=== PATIENT | male | born 1945 | race Hispanic/Latino ===

== ENCOUNTER 2018-10-28 13:06 | Inpatient (IN) | payer OTHER | END 2018-11-02 19:00 | LOC: EDH 13:06 → 3BH 17:00 | DX: M86.9 Osteomyelitis, unspecified (principal); J18.9 Pneumonia, unspecified organism; I13.0 Hypertensive heart and chronic kidney disease with heart failure and stage 1 through stage 4 chronic kidney disease, or unspecified chronic kidney disease; N17.9 Acute kidney failure, unspecified; M86.672 Other chronic osteomyelitis, left ankle and foot; I50.9 Heart failure, unspecified; N18.9 Chronic kidney disease, unspecified; E87.5 Hyperkalemia; L97.529 Non-pressure chronic ulcer of other part of left foot with unspecified severity; E11.621 Type 2 diabetes mellitus with foot ulcer; E11.22 Type 2 diabetes mellitus with diabetic chronic kidney disease; E11.51 Type 2 diabetes mellitus with diabetic peripheral angiopathy without gangrene ==

== ENCOUNTER 2018-11-19 16:52 | Emergency (ER) | payer OTHER ==
[~2018-11-19 16:52] MED LIST: AMLO10TA7 PO; ATOR10 PO; CYAN100084 PO; FERR159T2 PO; FOLI1TAB15 PO; FURO20TA4 PO; GABA-529 PO; HYDR-4154 PO; INSLAN SQ; INSU100C6 SQ; LISI10TA7 PO; METO25TA6 PO; OMEP20CA10 PO
== END 2018-11-19 20:57 | disposition home or self-care (01) ==
LOC: EDH 16:52
DX: I12.0 Hypertensive chronic kidney disease with stage 5 chronic kidney disease or end stage renal disease (principal); E11.22 Type 2 diabetes mellitus with diabetic chronic kidney disease; N18.6 End stage renal disease; E87.70 Fluid overload, unspecified; I25.10 Atherosclerotic heart disease of native coronary artery without angina pectoris; E78.5 Hyperlipidemia, unspecified; Z95.1 Presence of aortocoronary bypass graft; Z79.4 Long term (current) use of insulin; Z99.2 Dependence on renal dialysis

== ENCOUNTER 2018-11-20 10:21 | Emergency (ER) | payer OTHER ==
[2018-11-20 10:45] LABS: BASOPHILS % (AUTO) 1.2 % (0.0-5.0); EOSINOPHILS % (AUTO) 3.6 % (0.0-8.0); HEMATOCRIT 22.6 % (42-54); LYMPHOCYTES % (AUTO) 9.3 % (21.0-51.0); MEAN CORPUSCULAR HEMOGLOBIN 28.7 pg (27.0-33.0); MEAN CORPUSCULAR HGB CONC 32.1 g/dL (32.0-36.0); MEAN CORPUSCULAR VOLUME 89.6 fL (79-99); MONOCYTES % (AUTO) 10.4 % (3.0-13.0); NEUTROPHILS % (AUTO) 75.5 % (40.0-77.0); PLATELET COUNT (AUTO) 50 K/uL (130-400); RED BLOOD CELL COUNT(AUTO) 2.52 MIL/uL (4.50-6.20); RED CELL DISTRIBUTION WIDTH 15.5 % (11.0-15.5); WHITE BLOOD COUNT (AUTO) 5.8 K/uL (4.8-10.8)
[2018-11-20 10:58] LABS: POTASSIUM 5.5 mmol/L (3.5-5.1)
[2018-11-20 10:59] LABS: CREATININE 12.3 mg/dL (0.5-1.5)
[2018-11-20 11:05] LABS: INR 1.01 (0.85-1.15); PARTIAL THROMBOPLASTIN TIME 29.1 SEC (26.3-35.5); PROTHROMBIN TIME 10.6 SEC (9.6-11.6)
[2018-11-20] MEDS ORDERED: LIDOCAINE HCL 1% 20 ML VIAL ONE (11:20)
[2018-11-20] MEDS ORDERED: SODIUM BICARB 50MEQ 50ML VIAL ONE (11:20)
== END 2018-11-20 15:04 | disposition home or self-care (01) ==
LOC: EDH 10:21
DX: I12.0 Hypertensive chronic kidney disease with stage 5 chronic kidney disease or end stage renal disease (principal); E11.22 Type 2 diabetes mellitus with diabetic chronic kidney disease; N18.6 End stage renal disease; E87.5 Hyperkalemia; I25.10 Atherosclerotic heart disease of native coronary artery without angina pectoris; E78.5 Hyperlipidemia, unspecified; Z99.2 Dependence on renal dialysis
CPT/HCPCS: 36415; 36558; 77001; 80048; 85025; 85610; 85730; 99285; C1750; C1894; J1644 ×2; J3490

== ENCOUNTER → 2019-07-12 | Outpatient (CLI) | payer OTHER ==
[~2019-07-12] VITALS: Ht 190.5 cm; Wt 93.0 kg
[~2019-07-12] MED LIST changes: +OMEP-50 PO; -OMEP20CA10 PO; +REGADENOSON 0.4 MG/5 ML PF SYG IVP SCH
== END | disposition home or self-care (01) ==
LOC: SHCH 09:07
PROVIDERS: ATTEND Internal Medicine Cardiovascular Disease
DX: I25.10 Atherosclerotic heart disease of native coronary artery without angina pectoris (principal)
CPT/HCPCS: 78452; 93017; 96374; A9500 ×2; J2785

== ENCOUNTER → 2019-07-24 | Outpatient (CLI) | payer OTHER ==
[~2019-07-24] MED LIST changes: +OMEP-298 PO; -OMEP-50 PO; -REGADENOSON 0.4 MG/5 ML PF SYG IVP SCH
== END | disposition home or self-care (01) ==
LOC: SHCH 09:55
PROVIDERS: ATTEND Internal Medicine Cardiovascular Disease
DX: R09.89 Other specified symptoms and signs involving the circulatory and respiratory systems (principal); Z96.89 Presence of other specified functional implants
CPT/HCPCS: 93880

== ENCOUNTER → 2019-08-17 | Outpatient (CLI) | payer OTHER ==
[~2019-08-17] MED LIST changes: -OMEP-298 PO; +OMEP20CA12 PO
== END | disposition home or self-care (01) ==
LOC: SHCH 13:37
PROVIDERS: ATTEND Internal Medicine Cardiovascular Disease
DX: I08.0 Rheumatic disorders of both mitral and aortic valves (principal); I10 Essential (primary) hypertension
CPT/HCPCS: 93306

== ENCOUNTER → 2019-10-04 | Outpatient (CLI) | payer OTHER ==
[2019-10-03 13:49] LABS: BASOPHILS % (AUTO) 0.3 % (0.0-5.0); EOSINOPHILS % (AUTO) 0.4 % (0.0-8.0); HEMATOCRIT 31.2 % (42-54); LYMPHOCYTES % (AUTO) 10.7 % (21.0-51.0); MEAN CORPUSCULAR HGB CONC 32.1 g/dL (32.0-36.0); MEAN CORPUSCULAR VOLUME 96.6 fL (79-99); MONOCYTES % (AUTO) 6.8 % (3.0-13.0); NEUTROPHILS % (AUTO) 81.4 % (40.0-77.0); PLATELET COUNT (AUTO) 187 K/uL (130-400); RED BLOOD CELL COUNT(AUTO) 3.23 MIL/uL (4.50-6.20); RED CELL DISTRIBUTION WIDTH 13.6 % (11.0-15.5); WHITE BLOOD COUNT (AUTO) 18.7 K/uL (4.8-10.8)
[2019-10-03 14:01] LABS: PROTHROMBIN TIME 10.5 SEC (9.6-11.6)
[2019-10-03 14:06] LABS: ALBUMIN 3.2 g/dL (3.5-5.0); BILIRUBIN,TOTAL 0.8 mg/dL (0.2-1.0); CREATININE 2.3 mg/dL (0.5-1.5); POTASSIUM 3.9 mmol/L (3.5-5.1); TOTAL PROTEIN, SERUM 6.7 g/dL (6.0-8.3)
[2019-10-03 14:19] VITALS: BP 113/46
--- NOTE | 2019-10-03 16:34 | NUR ---
RE: ABNORMAL LABS REPORTED ELEVATED WBC 18.7 TO MARLINE CARTAGENA. PER OSIEL, THE PROCEDURE WILL HAVE TO BE RESCHEDULED. SHE WILL GET WIH THE PATIENT AT HIS NEXT HEMODIALYSIS AND LET HIM KNOW WHAT THEY ARE GOING TO DO.
[~2019-10-04] VITALS: Ht 188 cm; Wt 93.9 kg
[~2019-10-04] MED LIST changes: +ATOR-2 PO; +CYAN-35 PO; +FOLI0.4T2 PO; +FOLI1TAB85 PO; +METO100T14 PO
== END ==
LOC: DAH 10:00 → EDSTATUS 11:00
PROVIDERS: ATTEND Thoracic Surgery (Cardiothoracic Vascular Surgery)
DX: I12.0 Hypertensive chronic kidney disease with stage 5 chronic kidney disease or end stage renal disease (principal); N18.6 End stage renal disease; E11.22 Type 2 diabetes mellitus with diabetic chronic kidney disease; Z53.8 Procedure and treatment not carried out for other reasons
CPT/HCPCS: 36415; 71045; 80053; 85025; 85610; 85730; 93005; A6260

== ENCOUNTER 2019-10-14 06:00 | Day surgery (SDC) | payer OTHER ==
[2019-10-11 18:03] LABS: BASOPHILS % (AUTO) 0.8 % (0.0-5.0); EOSINOPHILS % (AUTO) 2.6 % (0.0-8.0); HEMATOCRIT 30.4 % (42-54); LYMPHOCYTES % (AUTO) 25.6 % (21.0-51.0); MEAN CORPUSCULAR HEMOGLOBIN 30.5 pg (27.0-33.0); MEAN CORPUSCULAR HGB CONC 31.6 g/dL (32.0-36.0); MEAN CORPUSCULAR VOLUME 96.5 fL (79-99); MONOCYTES % (AUTO) 9.1 % (3.0-13.0); NEUTROPHILS % (AUTO) 61.6 % (40.0-77.0); PLATELET COUNT (AUTO) 277 K/uL (130-400); RED BLOOD CELL COUNT(AUTO) 3.15 MIL/uL (4.50-6.20); RED CELL DISTRIBUTION WIDTH 13.6 % (11.0-15.5); WHITE BLOOD COUNT (AUTO) 7.4 K/uL (4.8-10.8)
[2019-10-11 18:20] LABS: ALBUMIN 3.4 g/dL (3.5-5.0); BILIRUBIN,TOTAL 0.4 mg/dL (0.2-1.0); CREATININE 2.8 mg/dL (0.5-1.5); POTASSIUM 4.1 mmol/L (3.5-5.1)
[2019-10-11 18:26] LABS: INR 0.95 (0.85-1.15); PARTIAL THROMBOPLASTIN TIME 24.5 SEC (26.3-35.5)
[2019-10-11 18:46] VITALS: BP 173/65
[2019-10-11 18:47] LABS: HEMOGLOBIN A1C 9.3 % (4.0-6.0)
[2019-10-14] VITALS (18 sets, daily range): BP systolic 139–166; BP diastolic 48–72
[~2019-10-14] VITALS: Ht 188 cm; Wt 92.2 kg
[~2019-10-14 06:00] MED LIST changes: -AMLO10TA7 PO; -ATOR-2 PO; -CYAN-35 PO; -CYAN100084 PO; -FERR159T2 PO; -FOLI0.4T2 PO; -FOLI1TAB15 PO; -FOLI1TAB85 PO; -FURO20TA4 PO; -INSLAN SQ; -INSU100C6 SQ; -LISI10TA7 PO; -METO100T14 PO; -OMEP20CA12 PO
[2019-10-14] MEDS ORDERED: SODIUM CHLORIDE 0.9% 1000ML 1,000 ML IV ONE (06:10)
[2019-10-14] MEDS ORDERED: CEFUROXIME SODIUM 1.5 GM VIAL ONE (06:11)
[2019-10-14] MEDS ORDERED: ATOR-2 PO (06:44)
[2019-10-14] MEDS ORDERED: FOLI1TAB85 PO (06:44)
[2019-10-14] MEDS ORDERED: CYAN-35 PO (06:44)
[2019-10-14] MEDS ORDERED: FOLI0.4T2 PO (06:44)
[2019-10-14] MEDS ORDERED: METO100T14 PO (06:44)
[2019-10-14] MEDS ORDERED: CEFUROXIME SODIUM 1.5 GM VIAL IVP ONE (08:00)
[2019-10-14] MEDS ORDERED: NEOMY SULF/POLYMYXIN B SULFATE 1 ML AMPUL IR ONE (11:55)
[2019-10-14] MEDS ORDERED: PROPOFOL 10 MG/ML 20ML VIAL IV ONE (12:11)
[2019-10-14] MEDS ORDERED: ROCURONIUM 10MG/1ML SYR 10 MG/ML ML ONE (12:11)
[2019-10-14] MEDS ORDERED: LIDOCAINE PF 2% 5ML ABBOJECT ONE (12:11)
[2019-10-14] MEDS ORDERED: MIDAZOLAM HCL 1 MG/ML 2ML VIAL ONE (12:11)
[2019-10-14] MEDS ORDERED: FENTANYL CITRATE PF 50 MCG/1 ML 2ML VIAL ONE (12:12)
[2019-10-14] MEDS ORDERED: NEOSTIGMINE 5MG/5ML SYR IV ONE (12:33)
[2019-10-14] MEDS ORDERED: GLYCOPYRROLATE 1 MG/5 ML SYRINGE ONE (12:33)
[2019-10-14] MEDS ORDERED: EPINEPHRINE 1 MG/ML AMPULE ONE (12:39)
[2019-10-14] MEDS ORDERED: ALBUMIN (HUMAN) 25% 50 ML IV ONE ×2 (12:39→12:40)
[2019-10-14] MEDS ORDERED: EPHEDRINE SULFATE 50 MG/ML AMPULE ONE (12:40)
[2019-10-14] MEDS ORDERED: ONDANSETRON HCL 4 MG/2 ML VIAL ONE (12:47)
[2019-10-14] MEDS ORDERED: MEPERIDINE-PF 25 MG/ML SYG ONE (14:16)
--- NOTE | 2019-10-14 15:50 | NUR ---
DISCHARGE INSTRUCTIONS PROVIDED TO PATIENT AND PATIENT'S SPOUSE. PRESCRIPTIONS PROVIDED AND INCISION CARE INSTRUCTIONS PROVIDED. PATIENT DISCHARGED VIA WHEELCHAIR AND ASSISTED INTO PRIVATE VEHICLE DRIVEN BY DAUGHTER.
== END 2019-10-14 15:50 | disposition home or self-care (01) ==
LOC: DAH 06:00 → DAHIP 06:00 → UNDOADMIN 06:00 → DAH 15:50
PROVIDERS: ATTEND Thoracic Surgery (Cardiothoracic Vascular Surgery)
DX: I12.0 Hypertensive chronic kidney disease with stage 5 chronic kidney disease or end stage renal disease (principal); E11.22 Type 2 diabetes mellitus with diabetic chronic kidney disease; N18.6 End stage renal disease; Z99.2 Dependence on renal dialysis; Z79.82 Long term (current) use of aspirin; Z79.899 Other long term (current) drug therapy; Z98.890 Other specified postprocedural states
CPT/HCPCS: 36415 ×2; 36821; 71045; 80053; 82948 ×2; 83036; 84132; 85025; 85610; 85730; 93005; A4215; A4221; A4222; A4223; A4649 ×4; A4663; A4930 ×2; A6207; A6260; G0168; J0171; J0697 ×2; J1644; J2001; J2175; J2250; J2405; J2704; J2710; J3010; J3490 ×3; J7030 ×2; J7040; P9047 ×2

== ENCOUNTER 2020-01-14 11:23 | Emergency (ER) | payer OTHER ==
[~2020-01-14 11:23] MED LIST changes: +ATOR-2 PO; -ATOR10 PO; +CYAN-35 PO; +FOLI0.4T2 PO; +FOLI1TAB85 PO; +METO100T14 PO; -METO25TA6 PO
[2020-01-14] MEDS ORDERED: SODIUM CHLORIDE 0.9% 250 ML IV ONE (11:24)
[2020-01-14 12:07] LABS: BASOPHILS % (AUTO) 0.7 % (0.0-5.0); EOSINOPHILS % (AUTO) 1.8 % (0.0-8.0); HEMATOCRIT 32.7 % (42-54); LYMPHOCYTES % (AUTO) 15.8 % (21.0-51.0); MEAN CORPUSCULAR HEMOGLOBIN 30.5 pg (27.0-33.0); MEAN CORPUSCULAR HGB CONC 33.3 g/dL (32.0-36.0); MEAN CORPUSCULAR VOLUME 91.6 fL (79-99); NEUTROPHILS % (AUTO) 72.1 % (40.0-77.0); PLATELET COUNT (AUTO) 181 K/uL (130-400); RED BLOOD CELL COUNT(AUTO) 3.57 MIL/uL (4.50-6.20); WHITE BLOOD COUNT (AUTO) 7.1 K/uL (4.8-10.8)
[2020-01-14 12:08] LABS: CARBON DIOXIDE 32 mmol/L (21-32); CHLORIDE 102 mmol/L (101-111); CREATININE 2.1 mg/dL (0.5-1.5); GLOMERULAR FILTR. RATE CALC 33 mL/min (>60); GLUCOSE,RANDOM 107 mg/dL (70-105); POTASSIUM 3.7 mmol/L (3.5-5.1); SODIUM SERUM 139 mmol/L (136-145); UREA NITROGEN, BLOOD 20 mg/dL (7-18)
[2020-01-14 12:16] LABS: INR 0.92 (0.85-1.15); PARTIAL THROMBOPLASTIN TIME 23.1 SEC (26.3-35.5)
[2020-01-14 12:20] LABS: ALANINE AMINOTRANSFERASE 18 U/L (12-78); ALBUMIN 3.7 g/dL (3.5-5.0); ASPARTATE AMINOTRANSFERASE 16 U/L (10-37); BILIRUBIN,TOTAL 0.7 mg/dL (0.2-1.0); CREATINE KINASE, TOTAL 123 U/L (21-232); MYOGLOBIN 275 ng/mL (10-92); TOTAL PROTEIN, SERUM 7.1 g/dL (6.0-8.3); TROPONIN I < 0.04 ng/mL (0.00-0.06)
== END 2020-01-14 14:55 | disposition home or self-care (01) ==
LOC: EDH 11:23
DX: R55 Syncope and collapse (principal); E86.1 Hypovolemia; R00.1 Bradycardia, unspecified; I25.10 Atherosclerotic heart disease of native coronary artery without angina pectoris; E78.5 Hyperlipidemia, unspecified; Z79.899 Other long term (current) drug therapy; T44.7X5A Adverse effect of beta-adrenoreceptor antagonists, initial encounter; I12.9 Hypertensive chronic kidney disease with stage 1 through stage 4 chronic kidney disease, or unspecified chronic kidney disease; E11.22 Type 2 diabetes mellitus with diabetic chronic kidney disease; N18.9 Chronic kidney disease, unspecified; Z88.2 Allergy status to sulfonamides; Y92.89 Other specified places as the place of occurrence of the external cause
CPT/HCPCS: 36415; 70450; 71045; 80053; 82140; 82550; 82948; 83605; 83874; 84145; 84484; 85025; 85610; 85730; 87040 ×2; 93005; 96360; 99285; J7030; J7050

== ENCOUNTER 2020-03-04 20:59 | Emergency (ER) | payer OTHER ==
[2020-03-04] MEDS ORDERED: DOXYCYCLINE HYCLATE 100 MG TABLET PO ONE (21:07)
[2020-03-04] MEDS ORDERED: CEFTRIAXONE SODIUM 1 GM ONE (22:11)
[2020-03-04] MEDS ORDERED: METHYLPREDNISOLONE SOD SUCC 40MG/ML 1ML ONE (22:12)
== END 2020-03-04 22:35 | disposition home or self-care (01) ==
LOC: EDH 20:59
DX: R50.9 Fever, unspecified (principal); R53.1 Weakness; Z20.828 Contact with and (suspected) exposure to other viral communicable diseases; I12.0 Hypertensive chronic kidney disease with stage 5 chronic kidney disease or end stage renal disease; E11.22 Type 2 diabetes mellitus with diabetic chronic kidney disease; N18.6 End stage renal disease; E78.5 Hyperlipidemia, unspecified; I25.10 Atherosclerotic heart disease of native coronary artery without angina pectoris; Z99.2 Dependence on renal dialysis; Z79.899 Other long term (current) drug therapy; Z87.891 Personal history of nicotine dependence

== ENCOUNTER 2020-08-19 18:14 | Emergency (ER) | payer OTHER ==
[2020-08-19] MEDS ORDERED: MAG HYDROX/AL HYDROX/SIMETH ES 30 ML SUSP UDCUP ONE (18:36)
[2020-08-19] MEDS ORDERED: LIDOCAINE HCL 2% VISCOUS 15 ML UDCUP ONE (18:36)
[2020-08-19] MEDS ORDERED: FAMOTIDINE 20MG TAB 20 MG TAB ONE (18:37)
[2020-08-19 18:54] LABS: BASOPHILS % (AUTO) 0.6 % (0.0-5.0); EOSINOPHILS % (AUTO) 1.4 % (0.0-8.0); HEMATOCRIT 33.1 % (42-54); LYMPHOCYTES % (AUTO) 23.4 % (21.0-51.0); MEAN CORPUSCULAR HEMOGLOBIN 29.6 pg (27.0-33.0); MEAN CORPUSCULAR HGB CONC 32.3 g/dL (32.0-36.0); MEAN CORPUSCULAR VOLUME 91.4 fL (79-99); MONOCYTES % (AUTO) 8.6 % (3.0-13.0); NEUTROPHILS % (AUTO) 65.8 % (40.0-77.0); PLATELET COUNT (AUTO) 172 K/uL (130-400); RED BLOOD CELL COUNT(AUTO) 3.62 MIL/uL (4.50-6.20); RED CELL DISTRIBUTION WIDTH 14.7 % (11.0-15.5); WHITE BLOOD COUNT (AUTO) 8.4 K/uL (4.8-10.8)
[2020-08-19 19:05] LABS: CREATININE 2.8 mg/dL (0.5-1.5); INR 0.97 (0.85-1.15); POTASSIUM 4.4 mmol/L (3.5-5.1); PROTHROMBIN TIME 10.4 SEC (9.6-11.6)
[2020-08-19 19:06] LABS: PARTIAL THROMBOPLASTIN TIME 23.9 SEC (26.3-35.5)
[2020-08-19 19:10] LABS: ALBUMIN 3.6 g/dL (3.5-5.0); TOTAL PROTEIN, SERUM 7.2 g/dL (6.0-8.3)
[2020-08-19 19:19] LABS: B-TYPE NATRIURETIC PEPTIDE 115 pg/mL (0-100)
[2020-08-19] MEDS ORDERED: SODIUM CHLORIDE 0.9% 500ML 500 ML IV ONE (19:28)
[2020-08-19] MEDS ORDERED: INSULIN HUMULIN R 100 UNIT/ML 3ML ONE (19:28)
[2020-08-19] MEDS ORDERED: CLONIDINE HCL 0.1 MG TABLET ONE (19:36)
[2020-08-19] MEDS ORDERED: HYDRALAZINE HCL 20 MG/ML VIAL ONE (19:42)
== END 2020-08-19 20:54 | disposition home or self-care (01) ==
LOC: EDH 18:14
DX: K29.00 Acute gastritis without bleeding (principal); I12.0 Hypertensive chronic kidney disease with stage 5 chronic kidney disease or end stage renal disease; E11.22 Type 2 diabetes mellitus with diabetic chronic kidney disease; N18.6 End stage renal disease; I25.10 Atherosclerotic heart disease of native coronary artery without angina pectoris; E78.5 Hyperlipidemia, unspecified
CPT/HCPCS: 36415; 71045; 80053; 82550; 82948; 83690 ×2; 83880; 84484; 85025; 85610; 85730; 93005; 96361; 96374; 99285; J0360; J1815; J7040

== ENCOUNTER → 2020-09-10 | Outpatient (CLI) | payer OTHER | END | disposition home or self-care (01) | LOC: SHCH 13:13 | PROVIDERS: ATTEND Internal Medicine Cardiovascular Disease | DX: R09.89 Other specified symptoms and signs involving the circulatory and respiratory systems (principal); R01.1 Cardiac murmur, unspecified | CPT/HCPCS: 93306; 93356; 93880 ==

== ENCOUNTER → 2021-08-16 | Outpatient (CLI) | payer OTHER ==
[~2021-08-16] MED LIST changes: -FOLI0.4T2 PO; +FOLI0.4T6 PO; +IOHEXOL-350 75 ML VIAL IV ONE
== END | disposition home or self-care (01) ==
LOC: RAH 07:42
PROVIDERS: ATTEND Internal Medicine Cardiovascular Disease
DX: I65.21 Occlusion and stenosis of right carotid artery (principal); M47.812 Spondylosis without myelopathy or radiculopathy, cervical region
CPT/HCPCS: 70498; Q9967